=== PATIENT | male | born 1965 | race American Indian/Alaskan Native ===

== ENCOUNTER 2017-06-13 10:40 | Day surgery (SDC) | payer BC ==
[2017-05-30 11:03] VITALS: BMI 25.0
[2017-06-13] MEDS ORDERED: Propofol 10 mg/ml Inj (20 ML) ONE (12:18)
[2017-06-13] MEDS ORDERED: Midazolam 2 MG/2 ML VIAL ONE (12:18)
[2017-06-13] MEDS ORDERED: ceFAZolin IV 2 gm in Dextrose 2 GM/50 ML BAG IVPB ONE (13:35)
[2017-06-13] MEDS ORDERED: Lactated Ringer's 1,000 ML IV ONE (13:45)
[2017-06-13] MEDS ORDERED: Rocuronium 10 mg/ml (5 ml) ONE (13:50)
[2017-06-13] MEDS ORDERED: Neostigmine Methylsulfate 3mg/3ml Syringe IV ONE (14:10)
[2017-06-13] MEDS ORDERED: Bupivacaine HCl 0.25% PF (10 ml) Inj ONE (14:14)
[2017-06-13] MEDS ORDERED: HYDROmorphone 0.5 mg/0.5 ml ISec IVP PRN (14:33)
[2017-06-13] MEDS ORDERED: Oxycodone/Acetaminophen 5/325 mg Tab PO PRN ×2 (14:43→14:50)
[2017-06-13] MEDS ORDERED: Lactated Ringer's 500 ML IV ONE (15:35)
[2017-06-13 15:51] VITALS: RESP 18; O2SAT 100
[2017-06-13 16:27] VITALS: BP 123/73; PULSE 73; TEMP 97.7
--- NOTE | 2017-06-14 06:47 | OP ---
PROCEDURE DATE: 06/13/2017 PREOPERATIVE DIAGNOSIS: Ventral hernia with obstruction. POSTOPERATIVE DIAGNOSIS: Ventral hernia with obstruction. PROCEDURE PERFORMED: Repair of ventral hernia and lysis of adhesions. SURGEON: Tino Price MD. ANESTHESIA: General. BLOOD LOSS: 30 mL. POSTOPERATIVE CONDITION: Stable. INDICATIONS FOR SURGERY: This is a 52-year-old male with a midline ventral hernia, which is increased in size, become more painful. It is partially incarcerated and he now wanted to go and repair it. GROSS FINDINGS: The hernia sac was two fingerbreadths above the umbilicus. There were adhesions within the sac, of both small bowel and transverse colon, which had to be taken down today prior to repair. DESCRIPTION OF THE PROCEDURE: Patient was taken to the operating room, general anesthesia was administered. The abdomen was prepped and draped. A transverse incision was made over the hernia sac. The hernia sac was almost immediately encountered, dissected down to the base. The neck of the hernia sac was transected exposing the underlying bowel and adhesions. The bowel was taken down sharply as well as the adhesions. Enterotomies of the small bowel and the transverse colon, repaired with silk. After the serosa was repaired, some omentum was also taken down sharply. A bleeding blood vessel in the mesentery was repaired. The wound was irrigated with saline. A primary repair with 0-Prolene was made, leaving a tissue defect. The tissue defect was repaired by widely mobilizing and making counter incisions and then utilizing an advancement flap closure with multiple layers of Monocryl and skin clips. Patient tolerated the procedure well, returned to recovery room in stable condition. Tino Price MD
== END 2017-06-13 16:29 | disposition home or self-care (01) ==
LOC: C.SDS 10:40
PROVIDERS: ATTEND Surgery
DX: K43.6 Other and unspecified ventral hernia with obstruction, without gangrene (principal); K66.0 Peritoneal adhesions (postprocedural) (postinfection); S36.438A Laceration of other part of small intestine, initial encounter; Y65.8 Other specified misadventures during surgical and medical care
CPT/HCPCS: 14000; 44602; 49561; J0690; J1885; J2250; J2405; J2704; J2710; J2765; J3010; J7120

== ENCOUNTER 2017-06-16 20:05 | Emergency (ER) | payer BC ==
[2017-06-16 20:05] VITALS: BMI 25.0
[2017-06-16 20:43] VITALS: RESP 18; TEMP 98.4
--- NOTE | 2017-06-16 20:57 | C.PDOC ---
History Of Present Illness Patient presents to ED with complaints of increased frequency of micturition but only with small amounts of urine. Patient states he had hernia repair on Monday and usually drinks 3-4 liters of water daily. Patient denies dysuria, fever, chills, nausea, or vomiting. Patient does not appear to have urinary retention symptoms. Time Seen by Provider: 06/16/17 20:57 Chief Complaint (Nursing): Male Genitourinary History Per: Patient History/Exam Limitations: no limitations Onset/Duration Of Symptoms: Days (3) Current Symptoms Are (Timing): Still Present Severity: Mild Pain Scale Rating Of: 3 Quality Of Discomfort: Unable To Describe Associated Symptoms: Urinary Symptoms (Increased frequency of micturition). denies: Fever, Chills, Nausea, Vomiting, Diarrhea Recent travel outside of the [place]: No Past Medical History Reviewed: Historical Data, Nursing Documentation, Vital Signs Vital Signs: Last Vital Signs Temp 98.4 F 06/16/17 20:37 Pulse 87 06/16/17 20:37 Resp 18 06/16/17 20:37 BP 138/88 06/16/17 20:37 Pulse Ox 100 06/16/17 21:26 - Medical History PMH: No Chronic Diseases - [facility] Procedures APPLICATION OF SPLINT (08/09/13) Family History: States: No Known Family Hx - Social History Hx Alcohol Use: No Hx Substance Use: No Review Of Systems Constitutional: Negative for: Fever, Chills Gastrointestinal: Negative for: Nausea, Vomiting, Diarrhea Genitourinary: Positive for: Frequency (With small amounts of urine ). Negative for: Dysuria Neurological: Negative for: Weakness, Numbness Psych: Negative for: Depression, Suicidal ideation Physical Exam - Physical Exam Appears: Non-toxic, Other (Awake and Alert) Skin: Warm, Dry Head: Normacephalic Eye(s): bilateral: Normal Inspection Oral Mucosa: Moist Chest: Symmetrical, No Tenderness Cardiovascular: Rhythm Regular Respiratory: No Rales, No Rhonchi, No Wheezing Gastrointestinal/Abdominal: Soft, No Tenderness, Hernia (Incision dry and clean ; No evidence of subumbilical hernia) Neurological/Psych: Oriented x3, Normal Speech, Normal Cognition ED Course And Treatment - Laboratory Results Result Diagrams: 06/16/17 21:31 06/16/17 21:31 O2 Sat by Pulse Oximetry: 100 (Room air) Pulse Ox Interpretation: Normal Progress Note: Ordered blood work and Urinalysis. Pt refused Ct scan. States that he will follow up with his doctor Reevaluation Time: 22:28 Reassessment Condition: Improved Disposition Counseled Patient/Family Regarding: Studies Performed, Diagnosis, Need For Followup - Disposition Referrals: Tino Price MD [Staff Provider] - Disposition: HOME/ ROUTINE Disposition Time: 20:57 Condition: FAIR Additional Instructions: Please return if symptoms recur Instructions: Dysuria (ED) Forms: [employer] (Kinyarwanda) - Clinical Impression Clinical Impression: Dysuria - Scribe Statement The provider has reviewed the documentation as recorded by the Scribe Yousif Clark All medical record entries made by the Scribe were at my direction and personally dictated by me. I have reviewed the chart and agree that the record accurately reflects my personal performance of the history, physical exam, medical decision making, and the department course for this patient. I have also personally directed, reviewed, and agree with the discharge instructions and disposition.
[2017-06-16 21:34] LABS: BASO % 0.5 % (0.0-2.0); EOS # 0.7 K/uL (0.0-0.7); EOS % 12.6 % (0.0-4.0); HEMOGLOBIN 12.6 g/dL (12.0-18.0); LYMPH # 1.4 K/uL (1.0-4.3); LYMPH % 24.4 % (20.0-40.0); MEAN CELL VOLUME 82.1 fL (80.0-94.0); MEAN CORPUSCULAR HEMOGLOBIN 27.1 pg (27.0-31.0); MEAN PLATELET VOLUME 8.2 fL (7.2-11.7); MONO # 0.4 K/uL (0.0-0.8); MONO % 7.4 % (0.0-10.0); NEUT # 3.2 K/uL (1.8-7.0); NEUT % 55.1 % (50.0-75.0); NRBC % 0.1 % (0.0-2.0); RBC 4.67 Mil/uL (4.40-5.90); RED CELL DISTRIBUTION WIDTH 15.7 % (11.5-14.5); WHITE BLOOD COUNT 5.8 K/uL (4.8-10.8)
[2017-06-16 21:40] LABS: SPERM URINE FEW /hpf; URINE BILIRUBIN NEGATIVE (NEGATIVE); URINE BLOOD NEGATIVE (NEGATIVE); URINE CLARITY Clear (Clear); URINE COLOR Straw (YELLOW); URINE GLUCOSE (UA) NORMAL (Normal); URINE LEUKOCYTE ESTERASE NEG Leu/uL (Negative); URINE NITRATE NEGATIVE (NEGATIVE); URINE PROTEIN NEGATIVE (NEGATIVE); URINE UROBILINOGEN NORMAL mg/dL (0.2-1.0)
[2017-06-16 21:46] LABS: BLOOD UREA NITROGEN 15 mg/dL (9-20); CALCIUM 8.6 mg/dl (8.6-10.4); GFR AFRICAN-AMERICAN > 60; GFR NON-AFRICAN AMERICAN > 60
[2017-06-16 22:33] VITALS: BP 122/72; PULSE 75; O2SAT 99
== END 2017-06-16 22:33 | disposition home or self-care (01) ==
LOC: C.ER 20:05
DX: R30.0 Dysuria (principal)